=== PATIENT | female | born 1965 | race Caucasian/White ===

== ENCOUNTER → 2016-12-27 | Outpatient (CLI) | payer OTHER | END | disposition home or self-care (01) | LOC: CFH 12:33 | PROVIDERS: ATTEND Obstetrics & Gynecology | DX: Z12.31 Encounter for screening mammogram for malignant neoplasm of breast (principal) | CPT/HCPCS: G0202 ==

== ENCOUNTER 2019-01-30 11:36 | Outpatient (CLI) | payer OTHER | END 2019-01-30 23:59 | disposition home or self-care (01) | LOC: CFH 11:36 | PROVIDERS: ATTEND Obstetrics & Gynecology | DX: Z12.31 Encounter for screening mammogram for malignant neoplasm of breast (principal) | CPT/HCPCS: 77063; 77067 ==